=== PATIENT | female | born 1980 | race American Indian/Alaskan Native ===

== ENCOUNTER 2017-11-15 15:39 | Emergency (ER) | payer BC ==
[2017-11-15 17:34] LABS: Bacteria,Urine 1+ /HPF (Negative); Bilirubin,Urine NEG (Negative); Blood,Urine NEG (Negative); Color,Urine Yellow (Yellow); Mucus,Urine FEW /HPF; Protein,Urine <15 mg/dL mg/dL (Negative)
[2017-11-15 17:36] LABS: HCG Qualitative,Urine Negative (Negative)
--- NOTE | 2017-11-15 21:35 | Emergency Department Report ---
ED Back Pain/Injury HPI - General Chief Complaint: Back Pain/Injury Stated Complaint: BACK PAIN Time Seen by Provider: 11/15/17 21:34 Source: patient, family Mode of arrival: Ambulatory Limitations: No Limitations - History of Present Illness Initial Comments: Patient reports that she has severe back pain for the last 4 days. She says she has a history of scoliosis and report unable to bend over and pain worse with sitting. Pain is 10 out of 10 feels achy. No radiation of pain to extremities. Denies any injury. Denies any loss of bowel or bladder function. Patient says she's had back pain in the past but nothing like what she and her lower back and its going across her back,both sides. She says she took over -the-counter pain medication but it did not help. Denies any urinary burning frequency or urgency. Denies any fever or chills. Denies any nausea or vomiting. Denies any abdominal pain. MD Complaint: back pain Onset/Timin -: days(s) Similar Symptoms Previously: Yes Place: home Radiation: none Severity: severe Severity scale (0 -10): 10 Quality: aching Consistency: constant Improves With: immobilization Worsens With: movement, other (stated in) Context: unknown, other (history of back pain) Associated Symptoms: denies other symptoms Treatments Prior to Arrival: NSAIDS, acetaminophen - Related Data Home Medications Medication Instructions Recorded Confirmed Last Taken Amlodipine Besylate/Benazepril 1 each PO QDAY 10/14/15 10/14/15 Unknown [Amlodipine-Benazepril 5-20 mg] Aspirin/Acetaminophen/Caffeine 1 each PO Q8HR PRN 10/14/15 10/14/15 Unknown [Tg's Ex-Str Powder Packet] Cyclobenzaprine [Flexeril] 10 mg PO TID PRN 10/14/15 10/14/15 Unknown Ibuprofen [Motrin] 400 mg PO Q8H PRN 10/14/15 10/14/15 Unknown Previous Rx's Medication Instructions Recorded Last Taken Type Ciprofloxacin HCl [Ciprofloxacin 500 mg PO BID #10 tablet 10/15/15 Unknown Rx TAB] HYDROcodone/APAP 10-325 [[place] 1 each PO Q8HR PRN #20 tablet 10/15/15 Unknown Rx 10/325] Naproxen [Naprosyn TAB] 500 mg PO BID PRN #20 tablet 10/15/15 Unknown Rx Penicillin Vk [Veetids TAB] 500 mg PO TID #20 tablet 10/15/15 Unknown Rx Nitrofurantoin Monohyd/M-Cryst 100 mg PO Q12H #14 capsule 11/15/17 Unknown Rx [Macrobid 100 mg Capsule] traMADol [Ultram] 50 mg PO Q6HR PRN #12 tablet 11/15/17 Unknown Rx Allergies Allergy/AdvReac Type Severity Reaction Status Date / Time No Known Allergies Allergy Unverified 10/14/15 16:44 ED Review of Systems ROS: Stated complaint: BACK PAIN Other details as noted in HPI Comment: All other systems reviewed and negative Constitutional: no symptoms reported Respiratory: no symptoms reported Cardiovascular: denies: chest pain, palpitations, dyspnea on exertion, edema, syncope, paroxysmal nocturnal dyspnea Gastrointestinal: denies: abdominal pain, nausea, vomiting, diarrhea, constipation, hematemesis, melena, hematochezia Genitourinary: denies: urgency, dysuria, frequency, hematuria, discharge, abnormal menses Musculoskeletal: back pain. denies: joint swelling, arthralgia, myalgia Skin: denies: rash Neurological: denies: headache, numbness, paresthesias, confusion, abnormal gait , vertigo ED Past Medical Hx - Past Medical History Medical history: hypertension ACID REFLUX, Scoliosis, Morbid obesity. Vaginal dleivery x 2. 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 No distress. Alert and acting appropriately. This is a 37-year-old female well-nourished well-developed in no acute distress she is morbidly obese. CV: S1, S2. Regular rate rhythm negative murmur Lungs: Clear to auscultate bilaterally, no rhonchi wheezes or rales. Chest wall: Tender to palpate Skin: Clean, dry and intact. No rhonchi wheezes or rales. Neurological: GCS at 15, Pt is alert and oriented 3 speech is clear . 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 Normal gait. Negative Romberg and no pronator drift. Normal Reflexes. No motor or sensory deficit Back: No vertebral tenderness, no paraspinal tenderness. Ambulates without any difficulties. Back/Abdomen: No Abdominal Tenderness (nontender to palpation in all quadrants, no CVA tenderness and normal bowel sounds throughout abdomen), No Perithoracic Tenderness, No Perilumbar Tenderness (no vertebral tenderness.), No Sacroiliac Tenderness, No Flank Tenderness, No Straight Leg Raise Pain (negative saddle anesthesia) Neuro: Yes Normal Sensation, Yes Normal DTR's, Yes Normal Gait, No Motor Weakness ED Course Vital Signs 11/15/17 15:55 Temperature 98.1 F Pulse Rate 97 H Respiratory 18 Rate Blood Pressure 183/82 O2 Sat by Pulse 98 Oximetry Vital Signs 11/15/17 11/15/17 15:55 22:52 Temperature 98.1 F 99.4 F Pulse Rate 97 H 81 Respiratory 18 20 Rate Blood Pressure 183/82 Blood Pressure 119/71 [Left] O2 Sat by Pulse 98 98 Oximetry - Reevaluation(s) Reevaluation #1: 11/15/17 23:07 Patient given Hampton 5/325 2 tablets by mouth in emergency room and Rocephin 1 g IV for urinary tract infection. No adverse reaction Ed Back Pain Tests - Tests Tests: Abnormal UA (positive bacteria and positive leukocyte Estrace. Urine culture sent) ED Medical Decision Making - Lab Data Lab Results 11/15/17 Range/Units 17:16 Urine Color Yellow (Yellow) Urine Turbidity Clear (Clear) Urine pH 6.0 (5.0-7.0) Ur Specific [place] 1.024 (1.003-1.030) Urine Protein <15 mg/dl (Negative) mg/dL Urine Glucose (UA) Neg (Negative) mg/dL Urine Ketones Neg (Negative) mg/dL Urine Blood Neg (Negative) Urine Nitrite Neg (Negative) Urine Bilirubin Neg (Negative) Urine Urobilinogen 2.0 (<2.0) mg/dL Ur Leukocyte Esterase Tr (Negative) Urine WBC (Auto) 6.0 (0.0-6.0) /HPF Urine RBC (Auto) 1.0 (0.0-6.0) /HPF U Epithel Cells (Auto) 8.0 (0-13.0) /HPF Urine Bacteria (Auto) 1+ (Negative) /HPF Urine Mucus Few /HPF Urine HCG, Qual Negative (Negative) Urine culture pending - Medical Decision Making ED course: Patient here complaining of lower back pain and thought it was from her scoliosis but found to have urinary tract infection. I discussed this with patient. She was given [place] 5/325 2 tablets in emergency room and Rocephin 1 g IM to manage urinary tract infection. Urine culture sent and pending. Patient discharged home with her family with prescription for Macrobid and Ultram and to follow-up with her primary care physician and 4 days. Critical care attestation.: If time is entered above; I have spent that time in minutes in the direct care of this critically ill patient, excluding procedure time. ED Disposition Clinical Impression: Acute cystitis without hematuria Lower back pain Qualifiers: Chronicity: unspecified Back pain laterality: bilateral Sciatica presence: without sciatica Qualified Code(s): M54.5 - Low back pain Disposition: DC- TO HOME OR SELFCARE Is pt being admited?: No Does the pt Need Aspirin: No Condition: Stable Instructions: Acute Low Back Pain (ED), Urinary Tract Infection in Women (ED) Additional Instructions: Please follow up with primary care physician in 4 days. Please increase her fluid intake to 2-3 L of water daily Take antibiotic as prescribed Do not drive or operate heavy machinery while taking Ultram as this medication causes drowsiness Prescriptions: Nitrofurantoin Monohyd/M-Cryst [Macrobid 100 mg Capsule] 100 mg PO Q12H #14 capsule traMADol [Ultram] 50 mg PO Q6HR PRN #12 tablet PRN Reason: Pain Referrals: [facility] [Outside] - 11/19/17 Forms: Work/School Release Form(ED)
[2017-11-15] MEDS ORDERED: DECADRON IM STA (22:28)
[2017-11-15] MEDS ORDERED: TORADOL IM ONE (22:28)
[2017-11-15] MEDS ORDERED: ROCEPHIN IM ONE (22:31)
[2017-11-15] MEDS ORDERED: XYLOCAINE 1% MPF 5 mL INFILTRATI ONE (22:31)
[2017-11-15] MEDS ORDERED: NORCO 5/325 PO ONE (22:31)
[2017-11-15 22:53] VITALS: BP 119/71
== END 2017-11-15 23:20 | disposition home or self-care (01) ==
LOC: ED 15:39
DX: N30.00 Acute cystitis without hematuria (principal); M54.5 Low back pain
CPT/HCPCS: 81001; 81025; 87086; 96372; 99283; J0696